=== PATIENT | female | born 1975 | race Asian ===

== ENCOUNTER 2019-12-31 08:58 | Emergency (ER) | payer OTHER ==
[~2019-12-31] VITALS: Ht 180.3 cm; Wt 96.6 kg
[2019-12-31 09:49] LABS: POTASSIUM 3.6 mmol/L (3.6-5.2)
[2019-12-31 09:52] LABS: PLATELET COUNT 356 K/uL (152-353)
[2019-12-31 10:20] VITALS: BP 137/64; TEMP 98.8
== END 2019-12-31 10:26 | disposition home or self-care (01) ==
LOC: ED 08:58
PROVIDERS: Family Medicine
DX: N94.6 Dysmenorrhea, unspecified (principal); K59.09 Other constipation
CPT/HCPCS: 80053; 81000; 81025; 85027; 96372; 99283; J1885